=== PATIENT | female | born 1960 | race Hispanic/Latino ===

== ENCOUNTER 2017-10-28 17:13 | Emergency (ER) | payer OTHER ==
[2017-10-28 17:22] VITALS: BP 131/36; PULSE 62; RESP 20; TEMP 98.4; O2SAT 97
[2017-10-28] MEDS ORDERED: Tdap Vaccine 0.5 ml Vial (10-64 yrs) IM ONE (17:29)
[2017-10-28] MEDS ORDERED: Bacitracin 500 Units/gm Oint Foilpak UD TOP STA (17:29)
--- NOTE | 2017-10-28 17:29 | ED PDOC ---
Lower Extremity Pain/Injury Time Seen by Provider: 10/28/17 17:23 Chief Complaint (Nursing): Lower Extremity Problem/Injury Chief Complaint (Provider): Lower Extremity Problem/Injury History Per: Patient History/Exam Limitations: no limitations Onset/Duration Of Symptoms: Hrs Current Symptoms Are (Timing): Still Present Additional Complaint(s): 57 year old female presents to the emergency department with a complaint of foot pain bilaterally, right greater than left. States she was walking to auditorium at work when she fell over a step while wearing high heels and twisting both feet. As well as injuring her right knee. Denies head injury or any previous injuries to the lower extremities. Reports ice did help relief symptoms. Patient is not up to date with tetanus shot and is declining the shot. Past Medical History Reviewed: Historical Data, Nursing Documentation, Vital Signs Vital Signs: Last Vital Signs Temp 98.4 F 10/28/17 17:19 Pulse 62 10/28/17 17:19 Resp 20 10/28/17 17:19 BP 131/36 L 10/28/17 17:19 Pulse Ox 97 10/28/17 17:19 - Medical History PMH: No Chronic Diseases - Surgical History Surgical History: No Surg Hx - Family History Family History: States: Unknown Family Hx - Social History Current smoker - smoking cessation education provided: No Alcohol: None Drugs: Denies - Home Medications Home Medications: Ambulatory Orders Medication Instructions Recorded Meloxicam [Mobic] 1 - 2 tab PO DAILY PRN #15 tab 10/28/17 - Allergies Allergies/Adverse Reactions: Allergies Allergy/AdvReac Type Severity Reaction Status Date / Time No Known Allergies Allergy Verified 10/28/17 17:19 Review of Systems ROS Statement: Except As Marked, All Systems Reviewed And Found Negative (As per HPI, otherwise negative) Constitutional: Negative for: Other (head injury) Musculoskeletal: Positive for: Foot Pain (Bilateral. Right greater than left. ) , Other (Right knee pain) Physical Exam - Reviewed Nursing Documentation Reviewed: Yes Vital Signs Reviewed: Yes - Physical Exam Appears: Positive for: Well, No Acute Distress Head Exam: Positive for: ATRAUMATIC, NORMAL INSPECTION, NORMOCEPHALIC Skin: Positive for: Normal Color, Warm, Dry Extremity: Positive for: Normal ROM (Full ROM actively of the right knee. Superfical abrasion noted to the right knee. No active bleeding. ), Tenderness ( Minimal tenderness of the right knee. Minimal dorsal tenderness to the feet bilaterally), Capillary Refill (DP pulses are 2+ b/l). Negative for: Deformity , Swelling, Other (No ankle tenderness bilaterally.) Neurologic/Psych: Positive for: Alert, Oriented (x3) - ECG O2 Sat by Pulse Oximetry: 97 (RA) Pulse Ox Interpretation: Normal Medical Decision Making Medical Decision Making: Time: 1728 Initial impression: Foot and knee injury Initial plan: Bilateral foot x-ray Right knee x-ray Left foot x-ray Bacitracin 1 ea TOP Tetanus 0.5 ml IM Reevaluation Time: 1734 Patient declined tetanus shot. Discussed with patient risks of not being up to date with a tetanus shot. Time: 1808 Knee x-ray FINDINGS: BONES: Normal. No fracture. JOINTS: Normal. No osteoarthritis. JOINT EFFUSION: None. OTHER FINDINGS: None. IMPRESSION: Normal radiographs of the right knee. Time: 1822 B/L Foot x-ray FINDINGS: BONES: Right Foot: Plantar and Achilles Tendon insertion calcaneal spurs. Left Foot: Plantar and Achilles Tendon insertion calcaneal spurs. JOINTS: Right Foot: Moderate hallux valgus deformity. Left Foot: Minor hallux valgus deformity. SOFT TISSUES: Right Foot: Normal. Left Foot: Normal. OTHER FINDINGS: None. IMPRESSION: No acute findings related to/accounting for the clinical presentation. Time: 1831 Patient is medically stable for discharge and given Rx for Mobic for pain. Advised to follow up with Dr. miri Strickland MD. Clinical impression: Knee Injury Scribe Attestation: Documented by Margie Tim, acting as a scribe for Davis Carlos PA-C. Provider Scribe Attestation: All medical record entries made by the Scribe were at my direction and personally dictated by me. I have reviewed the chart and agree that the record accurately reflects my personal performance of the history, physical exam, medical decision making, and the department course for this patient. I have also personally directed, reviewed, and agree with the discharge instructions and disposition. Disposition - Clinical Impression Clinical Impression: Foot injury, Knee injury, Abrasion - Patient ED Disposition Is Patient to be Admitted: No Counseled Patient/Family Regarding: Studies Performed, Diagnosis, Need For Followup, Rx Given - Disposition Referrals: [facility] [Outside] Miri Strickland DPM [[facility]] - Disposition: Routine/Home Disposition Time: 18:32 Condition: STABLE Additional Instructions: Follow up with your orthopedist or teletype installer for further evaluation. Return to ED immediately if symptoms worsen. Prescriptions: Meloxicam [Mobic] 1 - 2 tab PO DAILY PRN #15 tab PRN Reason: Pain Instructions: Skin Abrasions (DC), Foot Sprain (DC) Forms: [employer] Connect (Kinyarwanda) Print Language: SLOVAK
--- NOTE | 2017-10-28 18:11 | RAD ---
PROCEDURE: Right Knee Radiographs. HISTORY: trauma COMPARISON: None. FINDINGS: BONES: Normal. No fracture. JOINTS: Normal. No osteoarthritis. JOINT EFFUSION: None. OTHER FINDINGS: None. IMPRESSION: Normal radiographs of the right knee.
--- NOTE | 2017-10-28 18:24 | RAD ---
PROCEDURE: Bilateral Feet Radiographs. HISTORY: trauma COMPARISON: None. FINDINGS: BONES: Right Foot: Plantar and Achilles Tendon insertion calcaneal spurs. Left Foot: Plantar and Achilles Tendon insertion calcaneal spurs. JOINTS: Right Foot: Moderate hallux valgus deformity. Left Foot: Minor hallux valgus deformity. SOFT TISSUES: Right Foot: Normal. Left Foot: Normal. OTHER FINDINGS: None. IMPRESSION: No acute findings related to/accounting for the clinical presentation.
[2017-10-28] MEDS ORDERED: Naproxen 500 MG TAB PO ONE ×2 (18:52→19:01)
== END 2017-10-28 19:13 | disposition home or self-care (01) ==
LOC: SUPCPDRO 17:13 → H.ER 17:13
DX: S89.91XA Unspecified injury of right lower leg, initial encounter (principal); M79.672 Pain in left foot; M79.671 Pain in right foot; W19.XXXA Unspecified fall, initial encounter; Y99.0 Civilian activity done for income or pay